=== PATIENT | male | born 1980 | race Caucasian/White ===

== ENCOUNTER → 2017-05-12 | Outpatient (CLI) | payer OTHER ==
--- NOTE | 2017-05-12 16:06 | RAD ---
EXAM DESCRIPTION: Left ankle, 3 views CLINICAL HISTORY: ANKLE PAIN FINDINGS/ IMPRESSION: Ankle mortise is symmetric. No acute fracture or osteochondral lesion. Small medial tibiotalar marginal osteophytes There is a well-corticated calcification medial to the malleolus, likely remote trauma. Mild medial and lateral soft tissue swelling. No tarsal fracture Electronically signed by: Jonas Padron MD 05/12/2017 4:05 PM CDT
== END | disposition home or self-care (01) ==
LOC: RAD 09:50
PROVIDERS: ATTEND Orthopaedic Surgery
DX: M25.572 Pain in left ankle and joints of left foot (principal)

== ENCOUNTER → 2017-05-22 | Outpatient (CLI) | payer OTHER ==
--- NOTE | 2017-05-24 18:13 | MRI ---
Study: Noncontrast MRI of the left ankle. Exam Date: 05/22/2017 12:00 AM CDT Ordering Provider: CON GARCIAS Clinical Indication: SPRAIN OF ANKLE Comparison: None Technique: Multiplanar, multisequence MR images of the left ankle were obtained on a high-field magnet without contrast. Findings: No intact fibers of the anterior talofibular ligament with extensive fluid and inflammatory signal seen within the expected position of the ATFL compatible with acute complete tear. PT FL and CFL are intact. Inferior syndesmotic ligaments are intact. There is ill-definition of the deep more so than superficial fibers of the deltoid ligament as well as bone marrow edema seen within the medial malleolus compatible with medial stabilizer ligament sprain. Calcaneonavicular spring ligament and tibial spring ligaments are intact. Anterior tendons are normal in signal and morphology. The flexor tendons and peroneal tendons are unremarkable. Achilles tendon and plantar fascia are unremarkable. No lesion seen in the sinus tarsi or tarsal tunnel. No bone marrow edema or significant degenerative change. No fluid collections or soft tissue edema. Visualized cartilage appears intact. Impression: 1. Acute traumatic complete tear of the ATFL with surrounding soft tissue edema. There is also deep deltoid ligament injury with contusion of the medial malleolus. Electronically signed by: Dennis Lee MD 05/24/2017 6:12 PM CDT
== END | disposition home or self-care (01) ==
LOC: MRI 10:22
PROVIDERS: ATTEND Orthopaedic Surgery
DX: S93.402A Sprain of unspecified ligament of left ankle, initial encounter (principal); X58.XXXA Exposure to other specified factors, initial encounter